=== PATIENT | female | born 1960 | race Caucasian/White ===

== ENCOUNTER 2022-05-06 08:08 | Inpatient (IN) | payer MEDICAID ==
[2022-05-01 12:15] LABS: BASOPHILS # (AUTO) 0.1 X10'3 (0-0.2); BASOPHILS % (AUTO) 0.9 % (0-1); EOSINOPHILS # (AUTO) 0.1 X10'3 (0-0.9); EOSINOPHILS % (AUTO) 0.9 % (0-6); LYMPHOCYTES # (AUTO) 1.3 X10'3 (1.1-4.8); LYMPHOCYTES % (AUTO) 19.4 % (21-51); MEAN CORPUSCULAR HEMOGLOBIN 29.5 PG (27.0-31.0); MEAN CORPUSCULAR HGB CONC 33.1 g/dL (33.0-36.5); MEAN CORPUSCULAR VOLUME 89.3 FL (78-98); MEAN PLATELET VOLUME 8.3 FL (7.4-10.4); MONOCYTES # (AUTO) 0.6 X10'3 (0-0.9); MONOCYTES % (AUTO) 8.2 % (2-12); NEUTROPHILS # (AUTO) 4.9 X10'3 (1.8-7.7); NEUTROPHILS % (AUTO) 70.6 % (42-75); PRE OP HEMATOCRIT 40.9 % (35.0-45.0); PRE OP HEMOGLOBIN 13.5 g/dL (12.0-16.0); PRE OP PLATELET COUNT 269 X10'3 (140-440); RED BLOOD COUNT 4.58 X10'6 (4.20-5.60)
[2022-05-01 12:18] LABS: CLARITY,URINE CLEAR (Clear); COLOR,URINE YELLOW (Yellow); GLUCOSE, URINE NEGATIVE (Neg); KETONES,URINE NEGATIVE (Neg); LEUKOCYTE ESTERASE ,URINE NEGATIVE (Neg); NITRITES, URINE NEGATIVE (Neg); OCCULT BLOOD,URINE TRACE-INTACT (Neg); PROTEIN,URINE NEGATIVE (Neg); UROBILINOGEN,URINE 0.2 E.U/dL (0.2-1.0)
[2022-05-01 12:30] LABS: ALBUMIN 4.3 G/DL (3.4-5.0); ALBUMIN/GLOBULIN RATIO 1.2 (1.1-1.5); ALKALINE PHOSPHATASE 60 IU/L (46-116); BLOOD UREA NITROGEN 19 MG/DL (7-18); CALCIUM 9.3 MG/DL (8.5-10.1); CHLORIDE 100 MMOL/L (99-107); CREATININE 0.73 MG/DL (0.40-0.90); PRE OP ALT 38 U/L (30-65); PRE OP ANION GAP 9 (8-16); PRE OP AST 33 U/L (10-37); PRE OP BILIRUB, TOTAL 0.4 MG/DL (0.0-1.0); PRE OP GLUCOSE 107 MG/DL (70-104); PRE OP POTASSIUM 3.7 MMOL/L (3.4-5.1); PRE OP SODIUM 139 MMOL/L (135-145); TOTAL CARBON DIOXIDE 29.7 MMOL/L (24-32); eGFR 81 ML/MIN
[2022-05-01 12:46] LABS: UA COLLECTION TYPE CLN CATCH MIDSTREAM
[2022-05-01 12:49] LABS: BACTERIA,URINE FEW /HPF (Neg); MUCUS STRANDS FEW /LPF (Neg); RBC,URINE 0-2 /HPF (0-2); SQUAMOUS EPITHELIAL CELL,UR FEW /LPF (FEW); WBC,URINE 0-4 /HPF (0-4)
[2022-05-06] VITALS (26 sets, daily range): BP systolic 99–163; BP diastolic 45–85
[~2022-05-06] VITALS: Ht 167.6 cm; Wt 104.3 kg
[~2022-05-06 08:08] MED LIST: CYAN100097 PO; LORA-269 PO; LOSA1TAB39 PO; LYR75C PO; PARO-154 PO; TEMA15CA5 PO; TOPI25TA15 PO; ceFOXitin 2GM-NS 100mL ADDvant 100 ML IV ONE; famotidine 20mg tablet PO ONE; ringers solution, lacted 1,000 ML IV SCH
[2022-05-06] MEDS ORDERED: naloxone 0.4 mg/ml inj IV PRN (08:30)
[2022-05-06] MEDS ORDERED: morphine 2 MG/ML inj. syringe IV PRN (09:15)
[2022-05-06] MEDS ORDERED: labetalol 20mg/4ml (5mg/ml) syringe IV PRN (09:15)
[2022-05-06] MEDS ORDERED: morphine 4 MG/ML inj SYRINge IV PRN (09:15)
[2022-05-06] MEDS ORDERED: fentaNYL/PF 50MCG/1 ML 2ML syringe IV PRN ×2 (09:15)
[2022-05-06] MEDS ORDERED: ondansetron/PF 4mg/2ml inj IV PRN (09:15)
[2022-05-06] MEDS ORDERED: hydrALAZINE 20mg/ml inj. IV PRN (09:15)
[2022-05-06] MEDS ORDERED: ringers solution, lacted 1,000 ML IV SCH (09:15)
[2022-05-06] MEDS ORDERED: BUPIVACAINE liposomal/PF 13.3 MG/ML vial IM ONE (11:42)
[2022-05-06] MEDS ORDERED: BUPIVAcaine/PF 2.5 mg/ml (0.25%) 30ml vial ONE (11:42)
[2022-05-06] MEDS ORDERED: MIDAZolam 1 MG/ML 5ML VIAL ONE (11:48)
[2022-05-06] MEDS ORDERED: fentaNYL/PF 50MCG/1 ML 2ML syringe ONE (11:48)
[2022-05-06] MEDS ORDERED: dexamethasone sod phosphate 4mg/ml inj. ONE (11:50)
[2022-05-06] MEDS ORDERED: sevoflurane 250ml liquid IH ONE (11:50)
[2022-05-06] MEDS ORDERED: LIDOcaine 2% (20mg/ml) 5ml vial ONE (11:50)
[2022-05-06] MEDS ORDERED: glycopyrrolate 0.2mg/ml inj ONE (12:35)
[2022-05-06] MEDS ORDERED: rocuronium 10mg/ml inj IV ONE ×2 (12:35→13:59)
[2022-05-06] MEDS ORDERED: ondansetron/PF 4mg/2ml inj ONE (12:35)
[2022-05-06] MEDS ORDERED: propofol inj 20 ML IV ONE (12:35)
[2022-05-06] MEDS ORDERED: sugammadex 200mg/2ml injection IV ONE (12:59)
--- NOTE | 2022-05-06 14:36 | NUR ---
Received from OR via , accompanied by Anesthesiologist ALLAN AND OR NURSE and report given by Anesthesiolgist. PT IS DROWSY YET ABLE TO RESPOND TO VERBAL STIMULI. PT HAS A DESAI THAT IS PATENT WITH ORANGE/RED URINE. PT HAS MIDLINE INCISION WITH ISLAND DRESSING; CDI. VSS Addendum: 05/06/22 at 1758 by Sanna Last RN Amended: Links added.
[2022-05-06] MEDS: HYDROmorph/NS 0.2 mg/ml PCA 100 ML IV SCH ×7 (14:53→23:00)
--- NOTE | 2022-05-06 16:56 | NUR ---
PATIENT TAKEN TO ROOM WITH ALL BELONGINGS AND HOOKED UP TO MONITORS IN ROOM AND GIVEN CALL LIGHT, REPORT GIVEN TO RN WHO HAS TAKEN OVER PATIENT CARE. Addendum: 05/06/22 at 1704 by Sanna Last RN Amended: Links added.
--- NOTE | 2022-05-06 17:00 | NUR ---
received report from JAELYN Church. patient arrived to floor. VSS. no complaints. Resting comfortably. Incisions CDI.
[2022-05-06] MEDS: normal saline 1000ml 1,000 ML IV SCH (17:09)
--- NOTE | 2022-05-06 18:14 | NUR ---
Problems reprioritized. Patient report given, questions answered & plan of care reviewed with JAELYN Gamez.
[2022-05-06] MEDS: docusate sod 100mg capsule PO SCH (19:33)
[2022-05-06] MEDS: sennosides/docusate sodium tablet PO SCH (19:33)
[2022-05-06] MEDS ORDERED: cefoxitin sod inj 2,000 MG in normal saline 100ml IV soln 100 ML IV ONE (20:00)
[2022-05-06] MEDS: pregabalin 75mg capsule PO SCH (21:25)
[2022-05-07] MEDS: HYDROmorph/NS 0.2 mg/ml PCA 100 ML IV SCH ×12 (01:00→23:00)
[2022-05-07 02:00] VITALS: BP 115/64
[2022-05-07] MEDS: normal saline 1000ml 1,000 ML IV SCH (03:21)
[2022-05-07 06:10] LABS: BASOPHILS % (AUTO) 0.1 % (0-1); EOSINOPHILS % (AUTO) 0 % (0-6); HEMATOCRIT 33.7 % (35.0-45.0); LYMPHOCYTES # (AUTO) 0.4 X10'3 (1.1-4.8); LYMPHOCYTES % (AUTO) 2.5 % (21-51); MEAN CORPUSCULAR HEMOGLOBIN 29.2 PG (27.0-31.0); MEAN CORPUSCULAR HGB CONC 32.5 g/dL (33.0-36.5); MEAN CORPUSCULAR VOLUME 89.9 FL (78-98); MEAN PLATELET VOLUME 8.4 FL (7.4-10.4); MONOCYTES # (AUTO) 0.9 X10'3 (0-0.9); MONOCYTES % (AUTO) 5.8 % (2-12); NEUTROPHILS # (AUTO) 13.4 X10'3 (1.8-7.7); NEUTROPHILS % (AUTO) 91.6 % (42-75); PLATELET COUNT 229 X10'3 (140-440); RED BLOOD COUNT 3.75 X10'6 (4.20-5.60); RED CELL DISTRIBUTION WIDTH 14.6 % (11.5-14.5); WHITE BLOOD COUNT 14.7 X10'3 (4.5-11.0)
[2022-05-07 06:26] LABS: ALBUMIN 3.2 G/DL (3.4-5.0); ANION GAP 4 (8-16); BLOOD UREA NITROGEN 8 MG/DL (7-18); BUN/CREATININE RATIO 11.9 (6.6-38.0); CALCIUM 8.2 MG/DL (8.5-10.1); CHLORIDE 101 MMOL/L (99-107); CREATININE 0.67 MG/DL (0.40-0.90); GLUCOSE 149 MG/DL (70-104); POTASSIUM 3.2 MMOL/L (3.5-5.1); SODIUM 138 MMOL/L (135-145); TOTAL CARBON DIOXIDE 32.6 MMOL/L (24-32); eGFR 89 ML/MIN
[2022-05-07] MEDS: docusate sod 100mg capsule PO SCH ×2 (07:23→21:00)
[2022-05-07] MEDS: sennosides/docusate sodium tablet PO SCH ×2 (07:23→21:01)
[2022-05-07 07:40] VITALS: BP 137/70
[2022-05-07] MEDS ORDERED: topiramate 25mg tablet PO PRN (11:55)
[2022-05-07] MEDS ORDERED: LORazepam 1 MG tablet PO PRN (11:55)
[2022-05-07] MEDS ORDERED: temazepam 15mg capsule PO PRN (11:55)
[2022-05-07 12:30] VITALS: BP 122/64
[2022-05-07] MEDS ORDERED: potassium Cl 40MEQ/1/2NS 520ml 520 ML IV PRN (13:45)
[2022-05-07] MEDS ORDERED: magnesium Cl slow-release 64mg tablet PO PRN (13:45)
[2022-05-07] MEDS ORDERED: potassium Cl 20 mEq SR tablet PO PRN (13:45)
[2022-05-07] MEDS ORDERED: magnesium 4gm in 100ml NS 100 ML IV PRN (13:45)
[2022-05-07] MEDS ORDERED: magnesium 2GM in 50ml NS 50 ML IV PRN (13:45)
[2022-05-07] MEDS: PARoxetine 20mg tablet PO SCH (14:22)
[2022-05-07] MEDS: HYDROchlorothiazide 25mg tablet PO SCH (14:22)
[2022-05-07] MEDS: losartan 50mg tablet PO SCH (14:22)
[2022-05-07] MEDS: potassium Cl 20 mEq SR tablet PO PRN ×2 (14:23→22:13)
--- NOTE | 2022-05-07 14:39 | NUR ---
DC rogers. Patient doing well. resting comfortably. Rogers intact.
[2022-05-07 18:00] VITALS: BP 122/63
--- NOTE | 2022-05-07 18:14 | NUR ---
Problems reprioritized. Patient report given, questions answered & plan of care reviewed with JAELYN Gregg.
--- NOTE | 2022-05-07 18:55 | NUR ---
Patient in room [facility]. I have received report from TEODORA CHRISTY and had the opportunity to ask questions and assume patient care.
--- NOTE | 2022-05-07 18:55 | NUR ---
Patient in room [facility]. I have received report from YESIKA CHRISTY and had the opportunity to ask questions and assume patient care.
[2022-05-07] MEDS: K and/or MAG REPLACEMENT MC SCH (19:46)
[2022-05-07] MEDS ORDERED: enoxaparin 40mg/0.4ml syringe SUBCUT SCH (20:00)
[2022-05-07] MEDS: pregabalin 75mg capsule PO SCH (21:00)
[2022-05-07] MEDS ORDERED: pregabalin 75mg capsule PO SCH (21:00)
[2022-05-07 22:00] VITALS: BP 124/64
[2022-05-08] MEDS: HYDROmorph/NS 0.2 mg/ml PCA 100 ML IV SCH ×6 (01:00→10:40)
[2022-05-08] MEDS: potassium Cl 20 mEq SR tablet PO PRN ×2 (02:43→08:41)
--- NOTE | 2022-05-08 06:22 | NUR ---
Problems reprioritized. Patient report given, questions answered & plan of care reviewed with YESIKA CHRISTY.
[2022-05-08 07:21] LABS: BASOPHILS % (AUTO) 0.3 % (0-1); EOSINOPHILS % (AUTO) 0.1 % (0-6); HEMATOCRIT 34.5 % (35.0-45.0); HEMOGLOBIN 11.2 g/dl (12.0-16.0); LYMPHOCYTES # (AUTO) 2.3 X10'3 (1.1-4.8); LYMPHOCYTES % (AUTO) 16.4 % (21-51); MEAN CORPUSCULAR HEMOGLOBIN 29.4 PG (27.0-31.0); MEAN CORPUSCULAR HGB CONC 32.5 g/dL (33.0-36.5); MEAN CORPUSCULAR VOLUME 90.3 FL (78-98); MEAN PLATELET VOLUME 8.1 FL (7.4-10.4); MONOCYTES # (AUTO) 1.1 X10'3 (0-0.9); MONOCYTES % (AUTO) 8.1 % (2-12); NEUTROPHILS # (AUTO) 10.5 X10'3 (1.8-7.7); NEUTROPHILS % (AUTO) 75.1 % (42-75); PLATELET COUNT 287 X10'3 (140-440); RED BLOOD COUNT 3.82 X10'6 (4.20-5.60); RED CELL DISTRIBUTION WIDTH 14.7 % (11.5-14.5); WHITE BLOOD COUNT 14.1 X10'3 (4.5-11.0)
[2022-05-08 07:42] LABS: ALBUMIN 3.8 G/DL (3.4-5.0); ANION GAP 3 (8-16); BLOOD UREA NITROGEN 7 MG/DL (7-18); CHLORIDE 101 MMOL/L (99-107); CREATININE 0.87 MG/DL (0.40-0.90); GLUCOSE 105 MG/DL (70-104); MAGNESIUM 2.1 MG/DL (1.5-2.4); POTASSIUM 3.1 MMOL/L (3.5-5.1); SODIUM 139 MMOL/L (135-145); TOTAL CARBON DIOXIDE 35.4 MMOL/L (24-32); eGFR 66 ML/MIN
[2022-05-08] MEDS: K and/or MAG REPLACEMENT MC SCH (08:00)
[2022-05-08] MEDS ORDERED: cyanocobalamin 500mcg tablet PO SCH (08:00)
[2022-05-08 08:08] VITALS: BP 121/60
[2022-05-08] MEDS: normal saline 1000ml 1,000 ML IV SCH (08:30)
[2022-05-08] MEDS: HYDROchlorothiazide 25mg tablet PO SCH (08:40)
[2022-05-08 08:43] VITALS: BP_SYST 121
[2022-05-08] MEDS: sennosides/docusate sodium tablet PO SCH (08:43)
[2022-05-08] MEDS: docusate sod 100mg capsule PO SCH (08:43)
[2022-05-08] MEDS: losartan 50mg tablet PO SCH (08:43)
[2022-05-08] MEDS: PARoxetine 20mg tablet PO SCH (08:44)
--- NOTE | 2022-05-08 08:49 | NUR ---
Student Medication Administration: For this medication-pass time frame, all medication were reviewed, dispensed, administered and documented per hospital policy by Jaswinder Goodrich student nurse with Marcelo Zepeda instructor RN MSN.
[2022-05-08] MEDS ORDERED: PCA WASTE DOCUMENTATION 1 MG ML MC PRN (10:40)
--- NOTE | 2022-05-08 16:27 | NUR ---
Patient stable and appropriate for discharge home with sister. No new RX. IV removed. All discharge instructions and education given and reviewed with patient, all questions answered.
--- NOTE | 2022-05-08 19:25 | NUR ---
Student documentation: I have reviewed and agree with all interventions, assessments performed and documented by Renetta Goodrich student nurse, by Leif Zepeda RN Instructor.
== END 2022-05-08 16:15 | disposition home or self-care (01) | DRG 231 ==
LOC: PAS IN 08:08 → SUR 3N 17:06
PROVIDERS: ADMIT Surgery; ATTEND Surgery
PROC: 0TJB8ZZ Inspection of Bladder, Via Natural or Artificial Opening Endoscopic (ICD-10-PCS; 2022-05-06)
PROC: 0DTN0ZZ Resection of Sigmoid Colon, Open Approach (ICD-10-PCS; principal; 2022-05-06 11:50)
PROC: 0DNN0ZZ Release Sigmoid Colon, Open Approach (ICD-10-PCS; 2022-05-06 11:50)
DX: K57.32 Diverticulitis of large intestine without perforation or abscess without bleeding (principal); E66.9 Obesity, unspecified; F32.A Depression, unspecified; F41.9 Anxiety disorder, unspecified; Z63.4 Disappearance and death of family member; Z82.3 Family history of stroke; Z82.49 Family history of ischemic heart disease and other diseases of the circulatory system; Z87.891 Personal history of nicotine dependence; Z88.5 Allergy status to narcotic agent; Z79.899 Other long term (current) drug therapy; Z68.37 Body mass index [BMI] 37.0-37.9, adult
CPT/HCPCS: 36415; 76000; 80048; 80053; 81001; 82948; 83735; 85025; 85610; 85730; 86885; 86900; 86901; 87081; 93005; A4215; A4615; A4618; A6449; A7000; C1758; C1769; C9290; G0378; J0694; J1100; J1170; J1650; J2250; J2405; J2704; J3010; J3490; J7030; J7120

== ENCOUNTER 2022-05-17 19:50 | Inpatient (IN) | payer MEDICAID ==
[~2022-05-17] VITALS: Ht 167.6 cm; Wt 102.3 kg
[~2022-05-17 19:50] MED LIST changes: -ceFOXitin 2GM-NS 100mL ADDvant 100 ML IV ONE; -famotidine 20mg tablet PO ONE; -ringers solution, lacted 1,000 ML IV SCH
[2022-05-17 20:30] LABS: BASOPHILS # (AUTO) 0.1 X10'3 (0-0.2); BASOPHILS % (AUTO) 0.8 % (0-1); EOSINOPHILS # (AUTO) 0.1 X10'3 (0-0.9); EOSINOPHILS % (AUTO) 0.6 % (0-6); HEMOGLOBIN 11.9 g/dl (12.0-16.0); LYMPHOCYTES % (AUTO) 8.8 % (21-51); MEAN CORPUSCULAR HEMOGLOBIN 29.6 PG (27.0-31.0); MEAN CORPUSCULAR HGB CONC 33.2 g/dL (33.0-36.5); MEAN CORPUSCULAR VOLUME 89.3 FL (78-98); MEAN PLATELET VOLUME 7.8 FL (7.4-10.4); MONOCYTES # (AUTO) 0.5 X10'3 (0-0.9); MONOCYTES % (AUTO) 4.5 % (2-12); NEUTROPHILS # (AUTO) 10.1 X10'3 (1.8-7.7); NEUTROPHILS % (AUTO) 85.3 % (42-75); PLATELET COUNT 324 X10'3 (140-440); RED BLOOD COUNT 4.03 X10'6 (4.20-5.60); RED CELL DISTRIBUTION WIDTH 14.2 % (11.5-14.5); WHITE BLOOD COUNT 11.9 X10'3 (4.5-11.0)
[2022-05-17 20:47] LABS: ALANINE AMINOTRANSFERASE 31 U/L (12-78); ALBUMIN 3.6 G/DL (3.4-5.0); ALKALINE PHOSPHATASE 61 IU/L (46-116); ANION GAP 9 (8-16); ASPARTATE AMINO TRANSFERASE 27 U/L (10-37); BILIRUBIN,TOTAL 0.2 MG/DL (0.1-1.0); BLOOD UREA NITROGEN 13 MG/DL (7-18); BUN/CREATININE RATIO 18.8 (6.6-38.0); CHLORIDE 101 MMOL/L (99-107); CREATININE 0.69 MG/DL (0.40-0.90); GLUCOSE 135 MG/DL (70-104); LIPASE 119 U/L (73-393); POTASSIUM 3.7 MMOL/L (3.5-5.1); SODIUM 138 MMOL/L (135-145); TOTAL CARBON DIOXIDE 28.2 MMOL/L (24-32); TOTAL PROTEIN 7.2 G/DL (6.4-8.2); eGFR 86 ML/MIN
[2022-05-17] MEDS ORDERED: normal saline 1000ML IV soln IVB ONE (20:50)
[2022-05-17] MEDS ORDERED: normal saline 1000ml 1,000 ML IV ONE (20:50)
[2022-05-17] MEDS ORDERED: ondansetron/PF 4mg/2ml inj IV ONE (20:50)
[2022-05-17] MEDS ORDERED: morphine 4 MG/ML inj SYRINge IV ONE ×2 (20:50→23:25)
[2022-05-17 20:51] LABS: COLOR,URINE YELLOW (Yellow); GLUCOSE, URINE NEGATIVE (Neg); KETONES,URINE TRACE mg/dl (Neg); LEUKOCYTE ESTERASE ,URINE NEGATIVE (Neg); NITRITES, URINE NEGATIVE (Neg); OCCULT BLOOD,URINE SMALL (Neg); PROTEIN,URINE NEGATIVE (Neg); UROBILINOGEN,URINE 0.2 E.U/dL (0.2-1.0)
[2022-05-17 20:59] LABS: BACTERIA,URINE NONE SEEN /HPF (Neg); CLARITY,URINE CLEAR (Clear); RBC,URINE 0-2 /HPF (0-2); SQUAMOUS EPITHELIAL CELL,UR FEW /LPF (FEW); UA COLLECTION TYPE CLN CATCH MIDSTREAM; WBC,URINE 0-4 /HPF (0-4)
[2022-05-17] MEDS ORDERED: iohexol 300mg/ml 100ml inj. ONE (21:32)
[2022-05-17] MEDS ORDERED: metoclopramide 5 mg/ml inj IV ONE (23:40)
[2022-05-18] MEDS ORDERED: ondansetron/PF 4mg/2ml inj IV PRN (00:05)
[2022-05-18] MEDS ORDERED: potassium Cl 40MEQ/1/2NS 520ml 520 ML IV PRN (00:05)
[2022-05-18] MEDS ORDERED: magnesium Cl slow-release 64mg tablet PO PRN (00:05)
[2022-05-18] MEDS ORDERED: magnesium 4gm in 100ml NS 100 ML IV PRN (00:05)
[2022-05-18] MEDS ORDERED: potassium Cl 20 mEq SR tablet PO PRN (00:05)
[2022-05-18] MEDS: normal saline 1000ml 1,000 ML IV SCH ×3 (00:15→13:15)
[2022-05-18] MEDS ORDERED: PREG100C55 PO (01:54)
[2022-05-18] MEDS ORDERED: TEMA30CA PO (01:55)
[2022-05-18] MEDS ORDERED: HYDROmorphone inj. 0.5 MG/0.5 ML DISP.SYRIN IV SCH (02:00)
[2022-05-18 07:38] LABS: POTASSIUM 3.7 MMOL/L (3.5-5.1)
[2022-05-18] MEDS: K and/or MAG REPLACEMENT MC SCH ×2 (08:07→19:45)
[2022-05-18] MEDS: HYDROmorphone inj. 0.5 MG/0.5 ML DISP.SYRIN IV PRN ×2 (09:29→19:44)
--- NOTE | 2022-05-18 11:15 | NUR ---
Teena galean[place]agan in ED - 05/18/22 at 1446 by SUZIE Per conversation w/ Dr. Mclain, pt was given choice of whether to be admitted overnight for observation, or to go home and f/u w/ automatic clipper. Pt decided to be admitted overnight. Dr. Mclain aware.
[2022-05-18 14:37] LABS: BASOPHILS # (AUTO) 0.1 X10'3 (0-0.2); BASOPHILS % (AUTO) 0.6 % (0-1); EOSINOPHILS # (AUTO) 0.1 X10'3 (0-0.9); EOSINOPHILS % (AUTO) 0.7 % (0-6); HEMOGLOBIN 10.8 g/dl (12.0-16.0); LYMPHOCYTES % (AUTO) 9.5 % (21-51); MEAN CORPUSCULAR HEMOGLOBIN 30.4 PG (27.0-31.0); MEAN CORPUSCULAR HGB CONC 33.7 g/dL (33.0-36.5); MEAN CORPUSCULAR VOLUME 90.3 FL (78-98); MEAN PLATELET VOLUME 7.8 FL (7.4-10.4); MONOCYTES # (AUTO) 0.8 X10'3 (0-0.9); MONOCYTES % (AUTO) 7.7 % (2-12); NEUTROPHILS # (AUTO) 8.6 X10'3 (1.8-7.7); NEUTROPHILS % (AUTO) 81.5 % (42-75); PLATELET COUNT 257 X10'3 (140-440); RED BLOOD COUNT 3.55 X10'6 (4.20-5.60); RED CELL DISTRIBUTION WIDTH 14.5 % (11.5-14.5); WHITE BLOOD COUNT 10.6 X10'3 (4.5-11.0)
--- NOTE | 2022-05-18 14:46 | NUR ---
Previous note re: decison to be hospitalized is incorrect. Wrong pt.
[2022-05-18 14:54] LABS: ALANINE AMINOTRANSFERASE 29 U/L (12-78); ALBUMIN 3.1 G/DL (3.4-5.0); ALBUMIN/GLOBULIN RATIO 0.9 (1.1-1.5); ALKALINE PHOSPHATASE 54 IU/L (46-116); ANION GAP 5 (8-16); ASPARTATE AMINO TRANSFERASE 27 U/L (10-37); BILIRUBIN,TOTAL 0.4 MG/DL (0.1-1.0); BLOOD UREA NITROGEN 9 MG/DL (7-18); BUN/CREATININE RATIO 13.8 (10.0-20.0); CALCIUM 8.5 MG/DL (8.5-10.1); CHLORIDE 103 MMOL/L (99-107); CREATININE 0.65 MG/DL (0.40-0.90); GLUCOSE 108 MG/DL (70-104); SODIUM 141 MMOL/L (135-145); TOTAL PROTEIN 6.4 G/DL (6.4-8.2); eGFR > 90 ML/MIN
[2022-05-18] MEDS ORDERED: NORMAL SALINE IV ONE (15:05)
[2022-05-18] MEDS ORDERED: SINCALIDE IV ONE (15:05)
--- NOTE | 2022-05-18 19:22 | NUR ---
Received report from Geeta in ED and had the opportunity to ask questions and assume patient care.
[2022-05-18 19:48] VITALS: BP 124/54
[2022-05-18 22:05] VITALS: BP 121/60
[2022-05-19 03:08] VITALS: BP 119/61
[2022-05-19] MEDS: normal saline 1000ml 1,000 ML IV SCH ×2 (03:56→15:55)
[2022-05-19 05:29] VITALS: BP 116/52
[2022-05-19 06:20] LABS: BASOPHILS # (AUTO) 0.1 X10'3 (0-0.2); BASOPHILS % (AUTO) 0.7 % (0-1); EOSINOPHILS # (AUTO) 0.1 X10'3 (0-0.9); HEMATOCRIT 33.2 % (35.0-45.0); HEMOGLOBIN 11.2 g/dl (12.0-16.0); LYMPHOCYTES # (AUTO) 1.2 X10'3 (1.1-4.8); LYMPHOCYTES % (AUTO) 11.3 % (21-51); MEAN CORPUSCULAR HEMOGLOBIN 30.4 PG (27.0-31.0); MEAN CORPUSCULAR HGB CONC 33.6 g/dL (33.0-36.5); MEAN CORPUSCULAR VOLUME 90.6 FL (78-98); MONOCYTES # (AUTO) 0.7 X10'3 (0-0.9); MONOCYTES % (AUTO) 6.6 % (2-12); NEUTROPHILS # (AUTO) 8.3 X10'3 (1.8-7.7); NEUTROPHILS % (AUTO) 80.4 % (42-75); PLATELET COUNT 265 X10'3 (140-440); RED BLOOD COUNT 3.67 X10'6 (4.20-5.60); RED CELL DISTRIBUTION WIDTH 14.5 % (11.5-14.5); WHITE BLOOD COUNT 10.3 X10'3 (4.5-11.0)
--- NOTE | 2022-05-19 06:27 | NUR ---
Problems reprioritized. Patient report given, questions answered & plan of care reviewed with Sandra.
[2022-05-19 06:33] LABS: ALANINE AMINOTRANSFERASE 27 U/L (12-78); ALBUMIN 3.1 G/DL (3.4-5.0); ALBUMIN/GLOBULIN RATIO 0.9 (1.1-1.5); ALKALINE PHOSPHATASE 58 IU/L (46-116); ANION GAP 4 (8-16); ASPARTATE AMINO TRANSFERASE 20 U/L (10-37); BILIRUBIN,TOTAL 0.4 MG/DL (0.1-1.0); BLOOD UREA NITROGEN 7 MG/DL (7-18); CALCIUM 8.4 MG/DL (8.5-10.1); CHLORIDE 105 MMOL/L (99-107); GLUCOSE 112 MG/DL (70-104); MAGNESIUM 2.1 MG/DL (1.5-2.4); POTASSIUM 3.3 MMOL/L (3.5-5.1); SODIUM 141 MMOL/L (135-145); TOTAL CARBON DIOXIDE 32.4 MMOL/L (24-32); TOTAL PROTEIN 6.4 G/DL (6.4-8.2); eGFR 85 ML/MIN
[2022-05-19] MEDS: HYDROmorphone inj. 0.5 MG/0.5 ML DISP.SYRIN IV PRN ×2 (07:39→21:05)
[2022-05-19] MEDS: K and/or MAG REPLACEMENT MC SCH ×2 (08:00→20:00)
--- NOTE | 2022-05-19 12:06 | NUR ---
Malnutrition Consult: Pt admit DX RUQ pain w/ N/V hx sigmoid resection recent 05/06/22 admit eating normally w/ BM's until afternoon 05/17 onset N/V per EMR. Pending scaled wt this admit w/ standing scaled wt 104.326kg 05/06/22 admit per EMR. Pt w/ normal strength, no edema/wounds, and reported normal intake hx DIRECTOR PROCESS does not meet malnutrition criteria at this time. Noted pt on clear liquids started WL today to be NPO at midnight for lap possible open cholecystectomy for cholecystitis per MD note. Would benefit from routine B12 supplementation given hx gastric sleeve once PO post-op. Will monitor for further malnutrition criteria this admit. Addendum: 05/19/22 at [address] Amended: Links added.
[2022-05-19 15:03] VITALS: BP_SYST 125; BP_SYST 174; BP_DIAS 69; BP_DIAS 89
[2022-05-19] MEDS: potassium Cl 20 mEq SR tablet PO PRN ×2 (15:53→20:58)
[2022-05-19] MEDS: acetaminophen 325mg tablet PO PRN (15:53)
[2022-05-19 18:00] VITALS: BP 123/63
--- NOTE | 2022-05-19 18:46 | NUR ---
Problems reprioritized. Patient report given, questions answered & plan of care reviewed with Laverne Rn patient stable at transfer of care.
[2022-05-19 22:00] VITALS: BP 119/70
[2022-05-20] VITALS (17 sets, daily range): BP systolic 120–153; BP diastolic 51–87
[2022-05-20] MEDS: normal saline 1000ml 1,000 ML IV SCH ×3 (01:54→22:05)
[2022-05-20 06:09] LABS: BASOPHILS # (AUTO) 0.1 X10'3 (0-0.2); BASOPHILS % (AUTO) 0.8 % (0-1); EOSINOPHILS # (AUTO) 0.1 X10'3 (0-0.9); EOSINOPHILS % (AUTO) 1.5 % (0-6); HEMATOCRIT 28.4 % (35.0-45.0); HEMOGLOBIN 9.6 g/dl (12.0-16.0); LYMPHOCYTES # (AUTO) 0.8 X10'3 (1.1-4.8); LYMPHOCYTES % (AUTO) 10.1 % (21-51); MEAN CORPUSCULAR HEMOGLOBIN 30.3 PG (27.0-31.0); MEAN CORPUSCULAR HGB CONC 33.9 g/dL (33.0-36.5); MEAN CORPUSCULAR VOLUME 89.4 FL (78-98); MEAN PLATELET VOLUME 7.8 FL (7.4-10.4); MONOCYTES # (AUTO) 0.7 X10'3 (0-0.9); MONOCYTES % (AUTO) 8.6 % (2-12); NEUTROPHILS # (AUTO) 6.5 X10'3 (1.8-7.7); PLATELET COUNT 216 X10'3 (140-440); RED BLOOD COUNT 3.18 X10'6 (4.20-5.60); RED CELL DISTRIBUTION WIDTH 13.9 % (11.5-14.5); WHITE BLOOD COUNT 8.2 X10'3 (4.5-11.0)
[2022-05-20 06:24] LABS: ALANINE AMINOTRANSFERASE 23 U/L (12-78); ALBUMIN 2.7 G/DL (3.4-5.0); ALBUMIN/GLOBULIN RATIO 0.9 (1.1-1.5); ALKALINE PHOSPHATASE 52 IU/L (46-116); ANION GAP 6 (8-16); ASPARTATE AMINO TRANSFERASE 26 U/L (10-37); BILIRUBIN,TOTAL 0.4 MG/DL (0.1-1.0); BLOOD UREA NITROGEN 5 MG/DL (7-18); BUN/CREATININE RATIO 8.3 (10.0-20.0); CALCIUM 8.2 MG/DL (8.5-10.1); CHLORIDE 107 MMOL/L (99-107); GLUCOSE 103 MG/DL (70-104); MAGNESIUM 1.9 MG/DL (1.5-2.4); POTASSIUM 3.4 MMOL/L (3.5-5.1); SODIUM 143 MMOL/L (135-145); TOTAL CARBON DIOXIDE 30.2 MMOL/L (24-32); TOTAL PROTEIN 5.8 G/DL (6.4-8.2); eGFR > 90 ML/MIN
--- NOTE | 2022-05-20 06:31 | NUR ---
REPORT GIVEN TO ANSHU CHRISTY
--- NOTE | 2022-05-20 07:07 | NUR ---
Patient in room [facility] 4016. I have received report from Thea CHRISTY and had the opportunity to ask questions and assume patient care.
[2022-05-20] MEDS: HYDROmorphone inj. 0.5 MG/0.5 ML DISP.SYRIN IV PRN ×3 (07:59→21:39)
[2022-05-20] MEDS: potassium Cl 20 mEq SR tablet PO PRN ×2 (08:12→20:05)
[2022-05-20] MEDS: K and/or MAG REPLACEMENT MC SCH ×2 (08:13→20:00)
[2022-05-20] MEDS ORDERED: temazepam 15mg capsule PO PRN (09:40)
[2022-05-20] MEDS ORDERED: ondansetron/PF 4mg/2ml inj IV PRN (09:50)
[2022-05-20] MEDS ORDERED: proCHLORperazine 10 MG/2 ml inj IV PRN (09:50)
[2022-05-20] MEDS ORDERED: morphine 4 MG/ML inj SYRINge IV PRN (09:50)
[2022-05-20] MEDS ORDERED: morphine 2 MG/ML inj. syringe IV PRN (09:50)
[2022-05-20] MEDS ORDERED: meperidine/PF 25mg/ml syringe IV PRN ×3 (09:50)
[2022-05-20] MEDS ORDERED: ringers solution, lacted 1,000 ML IV SCH (09:50)
[2022-05-20] MEDS ORDERED: dexamethasone sod phosphate 10mg/ml inj ONE (13:10)
[2022-05-20] MEDS ORDERED: neostigmine methylsulfate 1 MG/ML 10ml vial ONE (13:10)
[2022-05-20] MEDS ORDERED: ondansetron/PF 4mg/2ml inj ONE (13:10)
[2022-05-20] MEDS ORDERED: sevoflurane 250ml liquid IH ONE (13:10)
[2022-05-20] MEDS ORDERED: midazolam 1 mg/ML 2ml injection ONE (13:17)
[2022-05-20] MEDS ORDERED: fentaNYL/PF 50MCG/1 ML 2ML syringe ONE (13:17)
[2022-05-20] MEDS ORDERED: rocuronium 10mg/ml inj IV ONE (13:20)
[2022-05-20] MEDS ORDERED: propofol inj 20 ML IV ONE (13:20)
[2022-05-20] MEDS ORDERED: LIDOcaine 2% (20mg/ml) 5ml vial ONE (13:21)
[2022-05-20] MEDS ORDERED: BUPIVAcaine/PF 2.5 mg/ml (0.25%) 30ml vial ONE (13:31)
[2022-05-20] MEDS ORDERED: ceFOXitin 1000 MG inj ONE ×2 (13:45)
[2022-05-20] MEDS ORDERED: glycopyrrolate 0.2mg/ml inj ONE (14:27)
[2022-05-20] MEDS ORDERED: ketorolac trometh. 30mg/ml inj. ONE (14:27)
--- NOTE | 2022-05-20 14:37 | NUR ---
Received from OR via HOSPITAL BED, accompanied by Anesthesiologist and report given by UMBERTO Anesthesiologist. PATIENT WAKING UP, DENIES PAIN, V/S WNL, PIV 20G LEFT FOREARM, DERMABONDED LAPS SITES CLOSED C/D/I TO ABDOMEN. Addendum: 05/20/22 at 1504 by Cedric Head RN Amended: Links added.
--- NOTE | 2022-05-20 15:11 | NUR ---
Patient in room [facility] 4016. I have received report from Cedric KINNEY and had the opportunity to ask questions and assume patient care.
--- NOTE | 2022-05-20 15:17 | NUR ---
PATIENT HAS MET ALL CRITERIA FOR TRANSFER TO ORTHO FLOOR. VSS. DRESSINGS INTACT. BED LOW, CALL LIGHT PRESENT AND 2 RAILS UP. RN PRESENT TO ACCEPT CARE OF PATIENT AND REPORT HAS BEEN CALLED. ALL QUESTIONS ANSWERED TO ACCEPTING RN. Addendum: 05/20/22 at 1527 by Cedric Head RN Amended: Links added.
--- NOTE | 2022-05-20 16:01 | NUR ---
Received telephone order from Dr. Kirkland for clear liquid diet, advance as tolerated to regular diet. Noted and carried out
--- NOTE | 2022-05-20 16:40 | NUR ---
Received telephone order from Dr. Kirkland to continue with order for normal saline 100ml/hr. Noted and carried out
--- NOTE | 2022-05-20 18:30 | NUR ---
Patient in room [facility] 4016. I have received report from JAELYN BRASHER and had the opportunity to ask questions and assume patient care.
--- NOTE | 2022-05-20 18:34 | NUR ---
Problems reprioritized. Patient report given, questions answered & plan of care reviewed with Nivia CHRISTY.
[2022-05-20] MEDS ORDERED: pregabalin 25mg capsule PO SCH (21:00)
[2022-05-21 02:16] VITALS: BP 133/65
[2022-05-21] MEDS: normal saline 1000ml 1,000 ML IV SCH (02:33)
[2022-05-21] MEDS: HYDROmorphone inj. 0.5 MG/0.5 ML DISP.SYRIN IV PRN (04:34)
[2022-05-21 06:10] LABS: BASOPHILS # (AUTO) 0.1 X10'3 (0-0.2); BASOPHILS % (AUTO) 0.8 % (0-1); EOSINOPHILS % (AUTO) 0.1 % (0-6); HEMATOCRIT 32.2 % (35.0-45.0); HEMOGLOBIN 10.4 g/dl (12.0-16.0); LYMPHOCYTES # (AUTO) 0.8 X10'3 (1.1-4.8); LYMPHOCYTES % (AUTO) 7.3 % (21-51); MEAN CORPUSCULAR HEMOGLOBIN 29.6 PG (27.0-31.0); MEAN CORPUSCULAR HGB CONC 32.4 g/dL (33.0-36.5); MEAN CORPUSCULAR VOLUME 91.5 FL (78-98); MEAN PLATELET VOLUME 8.4 FL (7.4-10.4); MONOCYTES # (AUTO) 0.6 X10'3 (0-0.9); MONOCYTES % (AUTO) 5.2 % (2-12); NEUTROPHILS % (AUTO) 86.6 % (42-75); PLATELET COUNT 302 X10'3 (140-440); RED BLOOD COUNT 3.52 X10'6 (4.20-5.60); WHITE BLOOD COUNT 11.5 X10'3 (4.5-11.0)
[2022-05-21 06:18] LABS: ALANINE AMINOTRANSFERASE 57 U/L (12-78); ALBUMIN 3.1 G/DL (3.4-5.0); ALBUMIN/GLOBULIN RATIO 0.8 (1.1-1.5); ALKALINE PHOSPHATASE 63 IU/L (46-116); ANION GAP 6 (8-16); ASPARTATE AMINO TRANSFERASE 66 U/L (10-37); BILIRUBIN,TOTAL 0.4 MG/DL (0.1-1.0); BLOOD UREA NITROGEN 6 MG/DL (7-18); BUN/CREATININE RATIO 9.1 (10.0-20.0); CALCIUM 8.5 MG/DL (8.5-10.1); CHLORIDE 106 MMOL/L (99-107); CREATININE 0.66 MG/DL (0.40-0.90); GLUCOSE 115 MG/DL (70-104); POTASSIUM 4.3 MMOL/L (3.5-5.1); SODIUM 141 MMOL/L (135-145); TOTAL CARBON DIOXIDE 29.1 MMOL/L (24-32); TOTAL PROTEIN 6.9 G/DL (6.4-8.2); eGFR 90 ML/MIN
--- NOTE | 2022-05-21 06:39 | NUR ---
Patient in room [facility] 4016. I have received report from Annalisa RN/JAELYN Paige and had the opportunity to ask questions and assume patient care.
[2022-05-21 07:00] VITALS: BP 137/79
[2022-05-21] MEDS ORDERED: PARoxetine 20mg tablet PO SCH (08:00)
[2022-05-21] MEDS ORDERED: losartan 50mg tablet PO SCH (08:00)
[2022-05-21] MEDS: K and/or MAG REPLACEMENT MC SCH (08:00)
[2022-05-21] MEDS: acetaminophen 325mg tablet PO PRN (10:26)
[2022-05-21 11:00] VITALS: BP 134/70
[2022-05-21] MEDS ORDERED: ACET-1008 PO (12:03)
[2022-05-21] MEDS ORDERED: CEPH250T PO (12:15)
--- NOTE | 2022-05-21 13:00 | NUR ---
INFANT CAREGIVER documentation: I have reviewed and agree with all interventions, assessments performed and documented by Sheree Craig LVN .
--- NOTE | 2022-05-21 13:10 | NUR ---
Patient discharge home with family, stable and appropriate for discharge. Discharge information was reviewed with patient, whom verbalize understanding. Patient was assisted to personal vehicle with all belongings.
== END 2022-05-21 13:05 | disposition home or self-care (01) | DRG 263 ==
LOC: ER 19:51 → OBSVTOIN 05-18 00:12 → ED HOLD 05-18 00:12 → UNDOADMOB 05-18 00:12 → INTOOBSV 05-18 00:12 → OBSVTOIN 05-18 08:55 → ED HOLD 05-18 08:55 → ORTHO 4S 05-18 19:40
PROVIDERS: ADMIT Internal Medicine; ATTEND Internal Medicine
PROC: BW211ZZ Computerized Tomography (CT Scan) of Abdomen and Pelvis using Low Osmolar Contrast (ICD-10-PCS; 2022-05-17)
PROC: CF1C1ZZ Planar Nuclear Medicine Imaging of Hepatobiliary System, All using Technetium 99m (Tc-99m) (ICD-10-PCS; 2022-05-18)
PROC: 0FT44ZZ Resection of Gallbladder, Percutaneous Endoscopic Approach (ICD-10-PCS; principal; 2022-05-20 13:10)
DX: K80.00 Calculus of gallbladder with acute cholecystitis without obstruction (principal); K82.A1 Gangrene of gallbladder in cholecystitis; Z66 Do not resuscitate; F32.A Depression, unspecified; Z60.2 Problems related to living alone; I10 Essential (primary) hypertension; F41.9 Anxiety disorder, unspecified; Z88.5 Allergy status to narcotic agent; Z88.8 Allergy status to other drugs, medicaments and biological substances; Z79.899 Other long term (current) drug therapy
CPT/HCPCS: 36415; 74177; 76700; 78226; 80053; 81001; 82948; 83690; 83735; 84132; 84145; 85025; 85610; 87081; 96361; 96374; 96375; 99285; A4215; A4615; A4618; A7000; A9537; G0378; J0694; J1100; J1170; J1885; J2250; J2270; J2405; J2704; J2710; J2765; J3010; J3490; J7030; J7120; Q9967